=== PATIENT | male | born 1975 | race Caucasian/White ===

== ENCOUNTER 2020-11-08 13:15 | Outpatient (REF) | payer OTHER, SELFPAY ==
--- NOTE | ~2020-11-08 | XR_ITS ---
EXAMINATION: XR THORACOLUMBAR SPINE CLINICAL INFORMATION: Pain in thoracic spine. COMPARISON: None TECHNIQUE: AP, lateral and swimmer's views of the thoracic spine were obtained. FINDINGS: The vertebral alignment is normal. No intrinsic bony abnormality. The disc heights and neural foramina are well maintained. The endplates and posterior elements are normal. No fracture or subluxation. The surrounding prevertebral soft tissues are unremarkable. XR/XR thoracic spine 2V IMPRESSION: Unremarkable examination.
[2020-11-08 14:19] LABS: MANUAL DIFF FLAG NO
[2020-11-08 14:26] LABS: Basophils Absolute Auto 0.1 X10*3/uL (0.0-0.2); Basophils Percent Auto 0.8 % (0-2); Eosinophils Absolute Auto 0.2 X10*3/uL (0.0-0.4); Eosinophils Percent Auto 1.8 % (0-4); Hematocrit 43.4 % (42-52); Hemoglobin 14.3 g/dl (14.0-18.0); Imm Gran Abs Auto 0.01 X10*3/uL (0.00-0.03); Imm Gran Pct Auto 0.1 % (0.0-0.4); Mean Corpuscular HGB Conc 32.9 g/dl (31.0-36.0); Mean Corpuscular Hemoglobin 30.6 pg (27.0-33.0); Mean Corpuscular Volume 92.7 fL (80-98); Mean Platelet Volume 11.3 fL (9.4-12.4); Monocytes Absolute Auto 0.3 X10*3/uL (0.1-1.2); Monocytes Percent Auto 3.9 % (2-11); Neutrophils Absolute Auto 6.8 X10*3/uL (2.0-8.3); Neutrophils Percent Auto 81.4 % (45-73); Platelet Count 310 X10*3/uL (160-400); Red Blood Count 4.68 X10*6/uL (4.60-5.80); Red Cell Distribution Width 12.2 % (11.0-16.0); White Blood Count 8.4 X10*3/uL (4.8-10.8)
[2020-11-08 14:47] LABS: Alanine Aminotransferase 33 U/L (0-40); Albumin Level 4.8 g/dL (3.5-5.0); Alkaline Phosphatase 66 U/L (39-117); Anion Gap 17 (12-20); Aspartate Amino Transferase 24 U/L (5-37); Bilirubin Total 0.6 mg/dL (0.0-1.0); Blood Urea Nitrogen 19 mg/dL (9-16); Calcium 9.9 mg/dL (8.4-10.2); Carbon Dioxide 27 mmol/L (22-29); Chloride 103 mmol/L (96-108); Cholesterol 195 mg/dL; Estimated Glomerular Filt Rate > 60; Glucose Fasting 93 mg/dL (60-99); HDL Cholesterol 68 mg/dL; LDL Cholesterol Calculated 105 mg/dl; Sodium 143 mmol/L (135-145); Total Protein 7.7 g/dL (6.5-8.0); Triglycerides 112 mg/dL
[2020-11-08 15:10] LABS: TSH reflex Free T4 1.29 uIU/mL (0.32-4.0); Vitamin D 25-OH Total 62.7 ng/mL (>30)
[2020-11-08 15:14] LABS: Erythrocyte Sedimentation Rate 3 MM/HR (0-15)
[2020-11-08 15:33] LABS: Folate > 20.0 ng/mL (> or = 4.0); Vitamin B12 800 pg/mL (200-900)
== END 2020-11-08 13:16 | disposition home or self-care (01) ==
LOC: HO.LAB 13:15
PROVIDERS: PCP Internal Medicine; Visit Provider Internal Medicine
DX: Z00.00 Encounter for general adult medical examination without abnormal findings (principal); G89.29 Other chronic pain; M25.522 Pain in left elbow; M54.6 Pain in thoracic spine; E55.9 Vitamin D deficiency, unspecified
CPT/HCPCS: 36415; 72070; 80053; 80061; 82306; 82607; 82746; 84443; 85025; 85652

== ENCOUNTER 2021-03-03 15:43 | Outpatient (AMB) | payer OTHER, SELFPAY ==
[2021-03-03 15:50] VITALS: BP 128/80; PULSE 84; TEMP 36; O2SAT 98; BMI 20.7
--- NOTE | 2021-03-03 15:50 | MHC.PC.OV ---
Vital Signs 03/03/21 15:50 Height 5 ft 8 in Weight 136 lb BMI 20.7 BP 128/80 Pulse 84 Pulse Source Pulse Oximeter Temp 96.8 F Pulse Oximetry (%) 98 Oxygen Delivery Method Room Air HPI 3 month follow up HPI Details Patient comes in today for his follow up visit States that he continues to experience chronic pain in his left elbow but his current Rx help keep his pain manageable - needs both of his Rx (Gabapentin and Tramadol)refilled States that he feels okay otherwise He denies any increased headaches or dizziness Denies any chest pains, no SOB No nausea/vomiting, no abdominal pain No change in bowel habits noted Would also like to know how his labs done a few months ago came out [facility] Medical History Anxiety Chronic pain of left elbow Vitamin D deficiency Surgical History History of elbow surgery (~08/27/10) Hx of elbow surgery (~09/29/12) Family History Mother Hypertension Cancer Father Medical history unknown Social History Housing: House Alcohol intake: never Patient Tobacco Use Status: Never used Tobacco e-Cigarette/Vaping Use: Never Used Second Hand Smoke Exposure: Yes service: No Current occupational status: unemployed Cognitive needs: No Hearing needs: No Vision needs: No Questionnaire PHQ-9 (HOL/HEY) Over the last 2 weeks, how often have you been bothered by any of the following problems? 1. Little interest or pleasure in doing things: not at all 2. Feeling down, depressed, or hopeless: not at all 3. Trouble falling or staying asleep, or sleeping too much: not at all 4. Feeling tired or having little energy: not at all 5. Poor appetite or overeating: not at all 6. Feeling bad about yourself - or that you are a failure or have let yourself or your family down: not at all 7. Trouble concentrating on things, such as reading the newspaper or watching television: not at all 8. Moving or speaking so slowly that other people could have noticed. Or the opposite - being so fidgety or restless that you have been moving around a lot more than usual: not at all 9. Thoughts that you would be better off or of hurting yourself in some way: not at all Total score: 0 Depression Screening Interpretation: Negative 46327 - PHQ-9 Billing: Yes Source: Developed by Drs. Alex Watson, Bre Terry, J Carlos Reid and colleagues, with an educational sayra from [employer]. Thrive Questionnaire Date Thrive assessed: 03/03/21 I am a: Patient What is your living situation today?: I have a steady place to live Within the past 12 months, did the food you bought not last and you didn't have the money to get more?: Never true Within the past 12 months, did you worry whether your food would run out before you got money to buy more?: Never true Do you have trouble paying for medicines?: No Do you have trouble getting transportation to medical appointments?: No Do you have trouble paying your heating and electricity bill?: No Do you have trouble taking care of your child, family member or friend?: No Do you have trouble with day-to-day activities such as bathing, preparing meals, shopping, managing finances, etc.?: No Are you currently unemployed and looking for a job?: No Are you interested in more education?: No Currently or been in a relationship where the following occur: no concerns reported AUDIT C Alcohol Use Questionnaire (AUDIT-C) 1. How often do you have a drink containing alcohol?: Never 3. How often do you have six or more drinks on one occasion?: Never Total Score: 0 Score Reviewed/Action Taken: Yes SAUMYA-7 AMB Questionnaire SAUMYA-7 Date SAUMYA - 7 assessed: 03/03/21 Feeling nervous, anxious, or on edge: 0 = Not at all Not being able to stop or control worryin = Not at all Worrying too much about different things: 0 = Not at all Trouble relaxin = Not at all Being so restless that it is hard to sit still: 0 = Not at all Becoming easily annoyed or irritable: 0 = Not at all Feeling afraid as if something awful might happen: 0 = Not at all Total SAUMYA-7 score (0-4 normal; 5-9 mild; 10-14 moderate; 15-21 severe): 0 Source: Developed by Drs. Alex Watson, Bre Terry, J Carlos Reid and colleagues, with an educational sayra from [employer]. Review of Systems Const Denies chills, Reports fatigue, Denies fever(s) and Denies headache(s) ENT Denies dysphagia, Denies dizziness, Denies otalgia, Denies headache(s), Denies odynophagia and Denies sore throat Card Denies chest pain, Denies palpitations and Denies dyspnea Resp Denies cough, Denies dyspnea and Denies wheezing GI Denies abdominal pain, Denies constipation, Denies dysphagia, Denies heartburn, Denies diarrhea, Denies nausea, Denies odynophagia and Denies vomiting Denies dysuria, Denies nocturia and Denies urinary frequency Musc Reports back pain (see HPI) and Reports arthralgias (over the left elbow - chronic) Skin/Breast Denies rash Neuro Denies dizziness and Denies headache(s) Endo Reports fatigue and Denies palpitations Aller/Immun Denies wheezing Physical exam (Primary Care) Vital Signs: Last Vital Signs Temp 96.8 F 03/03/21 15:50 Pulse 84 03/03/21 15:50 BP 128/80 03/03/21 15:50 Pulse Ox 98 03/03/21 15:50 Oxygen Delivery Method Room Air 03/03/21 15:50 BMI result Body Mass Index 20.7 Tobacco/Smoking Status: Tobacco use Status Tobacco use date assessed 03/03/21 03/03/21 15:55 Patient Tobacco Use Status Never used Tobacco 03/03/21 15:55 PHQ-9: Total score: 0 Depression Screening Interpretation: Negative Const General: no acute distress and alert HENMT Ears: TM's normal bilaterally and EAC's normal Throat: Yes posterior oropharynx normal and Yes tonsils normal (no TP congestion noted) Neck Neck: Yes no lymphadenopathy and Yes supple Resp Auscultation: clear to auscultation bilaterally, no rales and no wheezes Cardio Rate: regular rate Rhythm: regular rhythm Heart sounds: no murmurs GI Palpation (GI): Soft to palpation and nontender Auscultation: normal bowel sounds Back/Spine/Pelvis Thoracic/Lumbar Spine: lumbar spinal tenderness (mild) Extrem General: Yes no clubbing, cyanosis or edema Left upper extremity: elbow/forearm Details: tenderness (chronic) Location: of the olecranon and of the lateral epicondyle; no swelling Results Reviewed Results Reviewed: Laboratory Tests 11/08/20 11/08/20 13:45 13:45 WBC 8.4 Hgb 14.3 Hct 43.4 Plt Count 310 Sodium 143 Potassium 4.0 Creatinine 0.85 Estimated GFR > 60 Fasting Glucose 93 Calcium 9.9 AST 24 ALT 33 Triglycerides 112 Cholesterol 195 LDL Cholesterol, Calc 105 HDL Cholesterol 68 25-OH Vitamin D Total 62.7 TSH 1.29 Assessment and Plan Assessment & Plan (1) Chronic pain of left elbow: Comment: Failed surgery X [address] Welch Code(s): M25.522 - Pain in left elbow; G89.29 - Other chronic pain Plan: States that his chronic pain remains well-controlled on his current Rx Continue Gabapentin 400 mg TID and Tramadol 50 mg TID PRN - Rx refilled (2) Vitamin D deficiency: Code(s): E55.9 - Vitamin D deficiency, unspecified Plan: Corrected - vitamin D level remains normal on his recent labs Continue Vitamin D3 2000 units QD (3) Back pain: Code(s): M54.9 - Dorsalgia, unspecified Qualifiers: Back pain laterality: midline Back pain location: thoracic back pain Chronicity: acute Qualified Code(s): M54.6 - Pain in thoracic spine Plan: Reinforced activity and weight-lifting restrictions Continue Gabapentin 400 mg TID and Tramadol 50 mg TID PRN (4) Anxiety: Code(s): F41.9 - Anxiety disorder, unspecified Plan: States that his anxiety has been adequately controlled and he's had no flare ups of his anxiety lately Follow up with psychiatry / counseling as scheduled Plan Results of his labs done a few months ago reviewed and discussed with patient - advised that his cholesterol level, blood sugar and all of his labs are within normal limits Follow up in 4 months Medications: Refilled tramadol 50 mg PO TID PRN 90 tabs 1RF pain 30 days M25.522 - Pain in left elbow, G89.29 - Other chronic pain gabapentin 400 mg PO TID 90 caps 3RF 30 days M25.522 - Pain in left elbow, G89.29 - Other chronic pain Coding Level of Care Code Est Pt Level 4 (32230) Diagnoses Chronic pain of left elbow M25.522; G89.29 Vitamin D deficiency E55.9 Acute midline thoracic back pain M54.6 Back pain laterality: midline Back pain location: thoracic back pain Chronicity: acute Anxiety F41.9 Additional Codes PHQ-9 - 35245 - PHQ-9 Billing: Yes ([id number])
== END 2021-03-03 16:27 ==
LOC: HO.HMGH 15:43
PROVIDERS: PCP Internal Medicine; Visit Provider Internal Medicine
DX: M25.522 Pain in left elbow (principal); G89.29 Other chronic pain; E55.9 Vitamin D deficiency, unspecified; F41.9 Anxiety disorder, unspecified; M54.6 Pain in thoracic spine
CPT/HCPCS: 99214

== ENCOUNTER 2022-04-21 11:55 | Outpatient (REF) | payer OTHER, SELFPAY ==
[2022-04-21 13:11] LABS: Alanine Aminotransferase 15 U/L (0-40); Albumin Level 4.7 g/dL (3.5-5.0); Alkaline Phosphatase 64 U/L (39-117); Anion Gap 16 (12-20); Aspartate Amino Transferase 16 U/L (5-37); Bilirubin Total 0.8 mg/dL (0.0-1.0); Blood Urea Nitrogen 20 mg/dL (9-16); Calcium 9.6 mg/dL (8.4-10.2); Carbon Dioxide 25 mmol/L (22-29); Chloride 104 mmol/L (96-108); Cholesterol 138 mg/dL; Estimated Glomerular Filt Rate > 60; Glucose Fasting 100 mg/dL (60-99); HDL Cholesterol 47 mg/dL; LDL Cholesterol Calculated 79 mg/dl; Potassium 4.3 mmol/L (3.3-5.1); Sodium 141 mmol/L (135-145); Total Protein 7.2 g/dL (6.5-8.0); Triglycerides 64 mg/dL
[2022-04-21 13:26] LABS: TSH reflex Free T4 1.91 uIU/mL (0.32-4.0); Vitamin D 25-OH Total 60.9 ng/mL (>30)
[2022-04-21 13:47] LABS: Folate > 20.0 ng/mL (> or = 4.0); Vitamin B12 322 pg/mL (200-900)
== END 2022-04-21 11:56 | disposition home or self-care (01) ==
LOC: HO.LAB 11:55
PROVIDERS: PCP Internal Medicine; Visit Provider Nurse Practitioner Family
DX: Z13.29 Encounter for screening for other suspected endocrine disorder (principal); Z13.220 Encounter for screening for lipoid disorders; G89.29 Other chronic pain; M25.522 Pain in left elbow; E55.9 Vitamin D deficiency, unspecified
CPT/HCPCS: 36415; 80053; 80061; 82306; 82607; 82746; 84443

== ENCOUNTER 2022-08-06 14:52 | Emergency (ER) | payer OTHER, SELFPAY ==
--- NOTE | 2022-08-06 14:55 | ED_ITS ---
HPI - Allergic Reaction General Chief complaint: Allergic Reaction <LOC Medrano - Last Filed: 08/06/22 14:59> Stated complaint: allergic reaction <LOC Medrano - Last Filed: 08/06/22 14:59> Time Seen by Provider: 08/06/22 15:59 <LOC Medrano - Last Filed: 08/06/22 14:59> Source: patient <Belle Chen MD - Last Filed: 08/06/22 17:09> Mode of arrival: ambulatory <Belle Chen MD - Last Filed: 08/06/22 17:09> Limitations: no limitations <Belle Chen MD - Last Filed: 08/06/22 17:09> History of Present Illness HPI narrative: Patient comes to the emergency room complaining of an allergic reaction. Patient is known to be allergic to penicillin. Patient states that he has not taken any penicillin but his mother is taking penicillin. Patient states that approximately 3 hours prior to arrival, patient started feeling itchy around his face neck and torso, patient took a bit of Benadryl. Patient waited for a few minutes, then he went to the bathroom in a look at his face in the mirror, it was very swollen. Patient panicked and took in total 7 tablets of 25 mg of Benadryl and came to the hospital. On arrival to the hospital. Patient was immediately administered 0.3 mg of IM epinephrine, 20 mg famotidine and methyl prednisolone 125 mg. <Belle Chen MD - Last Filed: 08/06/22 17:09> Related Data Home medications: Previous Rx's Medication Instructions Recorded cholecalciferol (vitamin D3) 50 50 mcg PO DAILY #30 caps 04/24/22 mcg (2,000 unit) capsule gabapentin 400 mg capsule 400 mg PO TID 30 days #90 caps 07/21/22 tramadol 50 mg tablet 50 mg PO TID PRN pain 30 days #90 07/21/22 tabs epinephrine 0.3 mg/0.3 mL 0.3 mg (0.3 mL) IM Q4H PRN 08/06/22 injection, auto-injector (EpiPen) anaphylaxis #2 ea <LOC Medrano - Last Filed: 08/06/22 14:59> Allergies/adverse reactions: Allergies Allergy/AdvReac Type Severity Reaction Status Date / Time NSAIDS (Non-Steroidal Allergy Intermediate BLOOD IN Verified 08/06/22 14:57 Anti-Inflamma STOOL [NSAIDS (NON-STEROIDAL ANTI-INFLAMMA] diclofenac [DICLOFENAC] Allergy Unknown Blood in Verified 08/06/22 14:57 stool naproxen [Aleve] Allergy Unknown Blood in Verified 08/06/22 14:57 stool penicillin V Allergy Unknown rash Verified 08/06/22 14:57 Penicillins [PENICILLINS] Allergy Unknown Rash Verified 08/06/22 14:57 <LOC Medrano - Last Filed: 08/06/22 14:59> Review of Systems Review of Systems: Constitutional : No Weight loss, No Fever, No Chills, No N ight Sweats, No Fatigue, No Malaise, complaining of facial swelling ENT/Mouth : No Hearing loss, No Ear Pain, No Nasal Congestion, No Sinus Pain, No Hoarseness, No sore throat, No Rhinorrhea, initially complaining of difficulty swallowing Eyes: No Eye Pain, No Swelling, No Redness, No Foreign Body, No Discharge, No Vision Changes Cardiovascular : No Chest Pain, No SOB, No Dyspnea on Exertion, No Orthopnea, No Edema, No Palpitations Respiratory : No Cough, No Sputum, No Wheezing, No Smoke Exposure, complaining of Dyspnea Gastrointestinal : No Nausea, No Vomiting, No Diarrhea, No Constipation, No abdominal Pain, No Hematochezia, No Melena Genitourinary : no irregular bleeding, No Dysuria, No Urinary Frequency, No Hematuria, No Urinary Incontinence, No Urgency, No Flank Pain, No Urinary Flow Changes, No Hesitancy Musculoskeletal : No joint pain, No Myalgias, No Joint Swelling Skin : Complaining of diffuse hives, itchiness Neuro : No Weakness, No Numbness, No Paresthesias, No Loss of Consciousness, No Dizziness, No Headache Psych : No Anxiety/Panic, No Depression, No SI/HI/AH/VH, No Social Issues, Heme/Lymph: No Bruising, No Bleeding,No Lymphadenopathy Endocrine : No Polyuria, No Polydipsia, No Temperature Intolerance <Belle Chen MD - Last Filed: 08/06/22 17:09> [facility] Past Medical History Medical History: Medical History Anxiety Chronic pain of left elbow Vitamin D deficiency <LOC Medrano - Last Filed: 08/06/22 14:59> Surgical History: Surgical History History of elbow surgery (~08/27/10) Hx of elbow surgery (~09/29/12) <LOC Medrano - Last Filed: 08/06/22 14:59> Family History Family History: Family History Mother Hypertension Cancer Father Medical history unknown <LOC Medrano - Last Filed: 08/06/22 14:59> Social History Social History: Social History Housing: House Alcohol intake: never Patient Tobacco Use Status: Never used Tobacco e-Cigarette/Vaping Use: Never Used Second Hand Smoke Exposure: Yes Advance Directives: No Advance Directives Information Provided: Yes service: No Current occupational status: unemployed Cognitive needs: No Hearing needs: No Vision needs: No <LOC Medrano - Last Filed: 08/06/22 14:59> Physical Exam ED Vital Signs: Vital Signs - 24 hr 08/06/22 14:58 08/06/22 15:04 08/06/22 15:15 Temperature 98.1 F 97 F Pulse Rate 109 H 105 H 108 H Respiratory Rate 18 20 Blood Pressure 132/78 102/63 102/63 Pulse Oximetry 98 93 Oxygen Delivery Method Room Air Room Air 08/06/22 15:25 08/06/22 16:23 Temperature Pulse Rate 84 96 Respiratory Rate Blood Pressure Pulse Oximetry 96 97 Oxygen Delivery Method Room Air Room Air BMI result Body Mass Index 22.8 <LOC Medrano - Last Filed: 08/06/22 14:59> Vital Signs - 24 hr 08/06/22 14:58 08/06/22 15:04 08/06/22 15:15 Temperature 98.1 F 97 F Pulse Rate 109 H 105 H 108 H Respiratory Rate 18 20 Blood Pressure 132/78 102/63 102/63 Pulse Oximetry 98 93 Oxygen Delivery Method Room Air Room Air 08/06/22 15:25 08/06/22 16:23 Temperature Pulse Rate 84 96 Respiratory Rate Blood Pressure Pulse Oximetry 96 97 Oxygen Delivery Method Room Air Room Air BMI result Body Mass Index 22.8 <Belle Chen MD - Last Filed: 08/06/22 17:09> Const Other: Appearance: Alert. Oriented X3. No acute distress. Eyes: Pupils equal, round and reactive to light. ENT: Pharynx normal. Neck: Normal inspection. Neck supple. No lymph nodes noted. No crepitus CVS: Normal heart rate and rhythm. Pulses normal. Normal S1 and S2 Respiratory: No respiratory distress. Breath sounds normal. No Wheezing. No rales Abdomen: Soft and nontender. No rigidity. No distention. Skin: Skin warm and dry. Normal skin color. Normal skin turgor. Extremities: No lower extremity edema. No Lacerations. No Rash Neuro: Oriented X 3. No motor deficit. No sensory deficit. Moving all extremit ies. No slurred speech. CN 2 through 12 grossly intact Psych: calm, cooperative, normal affect <Belle Chen MD - Last Filed: 08/06/22 17:09> Course Course Course Narrative: RME - 47 yo male with history of penicillin allergy, red dye allergy presenting to the ER for evaluation of a diffuse body rash, facial swelling, throat tightening and voice changes that started 1:30pm. He took 7 tablets of 25 mg benadryl in a panic. Raspy voice in triage, anxious, diffuse urticarial rash. No wheezing. 18G IV established in triage. Epi, solumedrol and pepcid ordered for anaphylaxis. To go to treatment room now. <LOC Medrano - Last Filed: 08/06/22 14:59> Medications Administered Discontinued Medications Generic Name Dose Route Start Last Admin Trade Name Freq PRN Reason Stop Dose Admin Epinephrine 0.3 mg 08/06/22 14:54 08/06/22 15:04 Epinephrine 1 Mg/Ml Vial IM 08/06/22 14:55 0.3 mg STAT STA Administration Famotidine 20 mg 08/06/22 14:54 08/06/22 15:07 Famotidine/Pf 20 Mg/2 Ml Vial IVPUSH 08/06/22 14:55 20 mg ONCE ONE Administration Methylprednisolone Sodium Succinate 125 mg 08/06/22 14:54 08/06/22 15:04 Methylprednisolone Sod Succ 125 Mg/2 Ml Vial IVPUSH 08/06/22 14:55 125 mg ONCE ONE Administration <LOC Medrano - Last Filed: 08/06/22 14:59> Medications Administered Discontinued Medications Generic Name Dose Route Start Last Admin Trade Name Shayan PRN Reason Stop Dose Admin Epinephrine 0.3 mg 08/06/22 14:54 08/06/22 15:04 Epinephrine 1 Mg/Ml Vial IM 08/06/22 14:55 0.3 mg STAT STA Administration Famotidine 20 mg 08/06/22 14:54 08/06/22 15:07 Famotidine/Pf 20 Mg/2 Ml Vial IVPUSH 08/06/22 14:55 20 mg ONCE ONE Administration Methylprednisolone Sodium Succinate 125 mg 08/06/22 14:54 08/06/22 15:04 Methylprednisolone Sod Succ 125 Mg/2 Ml Vial IVPUSH 08/06/22 14:55 125 mg ONCE ONE Administration <Belle Chen MD - Last Filed: 08/06/22 17:09> Medical Decision Making Medical Decision Making MDM Narrative: -after patient received the IV treatment mentioned above, patient speaking full sentences, well appearing -patient will be observed for couple of hours, patient received IM epinephrine. -after 2 hours of observation, patient remains asymptomatic, no difficulty breathing, no wheezing, normal speech, no edema -discussed with the patient how to use EpiPen and when to use it. <Belle Chen MD - Last Filed: 08/06/22 17:09> Critical Care Time Critical Care Time Critical Care Time: Yes <Belle Chen MD - Last Filed: 08/06/22 17:09> Total Critical Care Time: 60 <Belle Chen MD - Last Filed: 08/06/22 17:09> Attestation: I have personally provided critical care time. Time includes review of lab data, radiology results, discussion with consultants, and monitoring for p otential decompensation. Intervention performed as documented. <Belle Chen MD - Last Filed: 08/06/22 17:09> Discharge Plan Discharge Clinical Impression: Anaphylaxis <LOC Medrano - Last Filed: 08/06/22 14:59> Patient Disposition: Home, Self-Care <LOC Medrano - Last Filed: 08/06/22 14:59> Instructions: Anaphylaxis (ED) <LOC Medrano - Last Filed: 08/06/22 14:59> Additional Instructions: Please follow-up with your primary care physician tomorrow. If you have any worsening or new symptoms, please return to the emergency room or call 911 <LOC Medrano - Last Filed: 08/06/22 14:59> Prescriptions: New epinephrine [EpiPen] 0.3 mg/0.3 mL auto-injector 0.3 mg IM Q4H PRN (Reason: anaphylaxis) Qty: 2 0RF No Action cholecalciferol (vitamin D3) 50 mcg (2,000 unit) capsule 50 mcg PO DAILY Qty: 30 5RF gabapentin 400 mg capsule 400 mg PO TID 30 Days Qty: 90 3RF tramadol 50 mg tablet 50 mg PO TID PRN (Reason: pain) 30 Days Qty: 90 1RF <OLC Medrano - Last Filed: 08/06/22 14:59>
[2022-08-06 14:58] VITALS: BP 132/78; PULSE 109; RESP 18; TEMP 36.7; O2SAT 98; BMI 22.8
[2022-08-06 15:04] VITALS: BP 102/63; PULSE 105
[2022-08-06] MEDS: methylPREDNISolone Sod Succ 125 MG/2 ML VIAL IVPUSH (15:04)
[2022-08-06] MEDS: EPINEPHrine 1 MG/ML VIAL 0.3 MG IM (15:04)
[2022-08-06] MEDS: Famotidine/PF 20 MG/2 ML VIAL IVPUSH (15:07)
[2022-08-06 15:15] VITALS: BP 102/63; PULSE 108; RESP 20; TEMP 36.1; O2SAT 93
[2022-08-06 15:25] VITALS: PULSE 84; O2SAT 96
[2022-08-06 16:23] VITALS: PULSE 96; O2SAT 97
== END 2022-08-06 17:24 | disposition home or self-care (01) ==
PROVIDERS: Emergency Provider Emergency Medicine; PCP Internal Medicine
DX: T88.6XXA Anaphylactic reaction due to adverse effect of correct drug or medicament properly administered, initial encounter (principal); T50.995A Adverse effect of other drugs, medicaments and biological substances, initial encounter; Y92.009 Unspecified place in unspecified non-institutional (private) residence as the place of occurrence of the external cause
CPT/HCPCS: 96372; 96374; 96375; 99283; 99284; J0171; J2930

== ENCOUNTER 2023-06-14 17:25 | Outpatient (AMB) | payer OTHER, SELFPAY ==
[2023-06-14 17:28] VITALS: BP 122/78; PULSE 90; BMI 20.7
--- NOTE | 2023-06-14 17:28 | A.OFFPC_ITS ---
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 Accompanied by: Self / Same As Patient Allergies blackberry Allergy (Severe, Verified 06/14/23 17:47) Anaphylaxis NSAIDS (Non-Steroidal Anti-Inflamma [NSAIDS (NON-STEROIDAL ANTI-INFLAMMA] Allergy (Intermediate, Verified 06/14/23 17:47) BLOOD IN STOOL diclofenac [DICLOFENAC] Allergy (Unknown, Verified 06/14/23 17:47) Blood in stool naproxen [Aleve] Allergy (Unknown, Verified 06/14/23 17:47) Blood in stool penicillin V Allergy (Unknown, Verified 06/14/23 17:47) rash Penicillins [PENICILLINS] Allergy (Unknown, Verified 06/14/23 17:47) Rash rassberry Allergy (Severe, Uncoded 06/14/23 17:47) Anaphylaxis Medication List - Last Reconciled 06/14/23 by Aguilar Lopez MD cholecalciferol (vitamin D3) 50 mcg PO DAILY 90 days epinephrine (EpiPen) 0.3 mg (0.3 mL) IM Q4H PRN gabapentin 400 mg PO TID 30 days tramadol 50 mg PO TID PRN 30 days Tobacco use date assessed: 10/26/22 Dental Screening Dental Screen Date: 06/14/23 Did you have a dental visit in the last 12 months?: No Did you have a dental problem in the last 6 months where you did not have access to dental care?: No Was dental information given to patient?: Patient declined HPI PE+ KARENA/JOSÉ MANUEL Montalvo MD INTERPRETATION HPI Details Patient comes in today for his annual physical examination States that he feels okay Still has chronic pain over his left elbow but states that they are mostly manageable on his current meds Needs his Tramadol and Gabapentin Rx refilled today States that he got his left hand caught on a dresser a couple of weeks ago and a couple of his fingers swelled up for a few days but the swelling has since subsided and the pain has also almost eased up States that he still has some stiffness of the fingers but he does not think that he broke any bones as he is able to flex his hand and make a fist without any problems He denies any headaches or dizziness Denies any chest pains, no SOB No nausea/vomiting, no abdominal pain No change in bowel habits noted He denies any acute urinary symptoms Was not able to get his follow up labs done recently States that he has never had a colonoscopy done in the past and that he has no increased risk (personal or family) of colon cancer PFSH Medical History Anxiety Vitamin D deficiency Chronic pain of left elbow Surgical History History of elbow surgery (~08/27/10) Hx of elbow surgery (~09/29/12) Family History Mother Hypertension Cancer Father Medical history unknown Social History Housing: House Alcohol intake: never Patient Tobacco Use Status: Never used Tobacco e-Cigarette/Vaping Use: Never Used Second Hand Smoke Exposure: Yes service: No Current occupational status: unemployed Cognitive needs: No Hearing needs: No Vision needs: No Questionnaire PHQ-9 Over the last 2 weeks, how often have you been bothered by any of the following problems? 1. Little interest or pleasure in doing things: not at all 2. Feeling down, depressed, or hopeless: not at all 3. Trouble falling or staying asleep, or sleeping too much: not at all 4. Feeling tired or having little energy: not at all 5. Poor appetite or overeating: not at all 6. Feeling bad about yourself - or that you are a failure or have let yourself or your family down: not at all 7. Trouble concentrating on things, such as reading the newspaper or watching television: not at all 8. Moving or speaking so slowly that other people could have noticed. Or the opposite - being so fidgety or restless that you have been moving around a lot more than usual: not at all 9. Thoughts that you would be better off or of hurting yourself in some way: not at all Total score: 0 Depression Screening Interpretation: Negative Depression Screening Done: Yes 35152 - PHQ-9 Billing: Yes Source: Developed by Drs. Alex Watson, Bre Terry, J Carlos Reid and colleagues, with an educational sayra from [employer]. Thrive Questionnaire Date Thrive assessed: 06/14/23 I am a: Patient What is your living situation today?: I have a steady place to live Within the past 12 months, did the food you bought not last and you didn't have the money to get more?: Never true Within the past 12 months, did you worry whether your food would run out before you got money to buy more?: Never true Do you have trouble paying for medicines?: No Do you have trouble getting transportation to medical appointments?: No Do you have trouble paying your heating and electricity bill?: No Do you have trouble taking care of your child, family member or friend?: No Do you have trouble with day-to-day activities such as bathing, preparing meals, shopping, managing finances, etc.?: No Are you currently unemployed and looking for a job?: No Are you interested in more education?: No Currently or been in a relationship where the following occur: no concerns reported AUDIT C Alcohol Use Questionnaire (AUDIT-C) 1. How often do you have a drink containing alcohol?: Never Total Score: 0 Score Reviewed/Action Taken: Yes SAUMYA-7 AMB Questionnaire SAUMYA-7 Date SAUMYA - 7 assessed: 03/03/21 Source: Developed by Drs. Alex Watson, Bre Terry, J Carlos Reid and colleagues, with an educational sayra from [employer]. Review of Systems Const Denies chills, Denies fatigue, Denies fever(s), Denies headache(s), Denies malaise and Denies weakness Eyes Denies blurry vision, Denies change in vision, Denies irritation and Denies itchy eyes ENT Denies dysphagia, Denies dizziness, Denies otalgia, Denies headache(s), Denies nasal congestion, Denies neck pain, Denies odynophagia and Denies sore throat Card Denies chest pain, Denies rapid heart rate, Denies irregular heart rhythm, Denies palpitations and Denies dyspnea Resp Denies chest congestion, Denies cough, Denies dyspnea and Denies wheezing GI Denies abdominal pain, Denies bloating, Denies constipation, Denies dysphagia, Denies heartburn, Denies diarrhea, Denies nausea, Denies odynophagia and Denies vomiting Denies hematuria, Denies difficulty urinating, Denies dysuria, Denies urinary frequency and Denies urinary urgency Musc Reports back pain (over the lower back), Reports arthralgias (over the left elbow - chronic) and Denies neck pain Skin/Breast Denies change in pigmentation, Denies lesions, Denies rash and Denies unusual bruising Neuro Denies dizziness, Denies headache(s), Denies paresthesias and Denies weakness Endo Denies fatigue and Denies palpitations Aller/Immun Denies itchy eyes, Reports seasonal rhinorrhea and Denies wheezing Physical exam (Primary Care) Vital Signs: Last Vital Signs Pulse 90 06/14/23 17:28 BP 122/78 06/14/23 17:28 BMI result Body Mass Index 20.7 Tobacco/Smoking Status: Tobacco use Status Tobacco use date assessed 10/26/22 06/14/23 17:31 Patient Tobacco Use Status Never used Tobacco 06/14/23 17:31 e-Cigarette/Vaping Use Never Used 06/14/23 17:31 Depression Screening Interpretation: Negative Thrive Assessment: Date of Thrive Assessment Date Thrive assessed 10/26/22 12 17:31 Currently or been in a relationship where the following occur: no concerns reported Const General: no acute distress, alert and awake Orientation/consciousness: patient oriented x3 HENMT Head: Yes normocephalic and Yes atraumatic Ears: external ears normal, TM's normal bilaterally and EAC's normal General nose exam: No nasal discharge present Face and sinus: Yes normal facial exam and Yes sinuses nontender Teeth and gingiva: dentition normal Throat: Yes posterior oropharynx normal and Yes tonsils normal (no TP congestion) Eyes Eyelids: Yes eyelids normal Conjunctivae: conjunctivae normal Pupils: Equal, round and reactive pupils present EOM: EOMs intact bilaterally Neck Neck: Yes no lymphadenopathy and Yes supple Thyroid: Thyroid normal Resp Auscultation: clear to auscultation bilaterally, no rales and no wheezes Cardio Rate: regular rate Rhythm: regular rhythm Heart sounds: no murmurs GI Palpation (GI): Soft to palpation, nontender and No hepatosplenomegaly present Auscultation: normal bowel sounds General: Yes no CVA tenderness Back/Spine/Pelvis Back: no CVA tenderness Thoracic/Lumbar Spine: lumbar spinal tenderness (mild) Skin Lesions: no lesions Rashes: no rashes Neuro General: patient oriented x3, moves all extremities, no focal motor deficits and CN's II-XI intact bilaterally Cranial nerves: Yes Equal, round and reactive pupils present Cognition (Neuro): normal cognition Gait exam (Neuro): Normal gait present Extrem General: Yes no clubbing, cyanosis or edema Left upper extremity: elbow/forearm Details: tenderness (chronic) Location: of the olecranon and of the lateral epicondyle; no swelling Assessment and Plan Assessment & Plan (1) Annual physical exam: Code(s): Z00.00 - Encounter for general adult medical examination without abnormal findings Plan: Check labs - these have been ordered previously and he can go and get these done at any time He has never had a screening colonoscopy done and does not wish to start yet; also declines offer for Cologuard testing States that he is aware of the risks he is taking by not getting screened for colon cancer at this time - has been advised that current recommendation now is to start screening for colon cancer at age 45 Patient states that he will consider this again at his next annual physical exam next year (2) Chronic pain of left elbow: Comment: Failed surgery X [address] Welch Code(s): M25.522 - Pain in left elbow; G89.29 - Other chronic pain Plan: Continue Tramadol 50 mg TID PRN and Gabapentin 400 mg TID - Rx refilled (3) Vitamin D deficiency: Code(s): E55.9 - Vitamin D deficiency, unspecified Plan: Continue Vitamin D3 2000 units QD Will recheck his Vitamin D level DEIDRE for follow up (4) Back pain: Code(s): M54.9 - Dorsalgia, unspecified Qualifiers: Back pain laterality: midline Back pain location: thoracic back pain Chronicity: acute Qualified Code(s): M54.6 - Pain in thoracic spine Plan: On and off; thoracic spine x-rays done in 11/2020 came out normal Will consider referring to physical therapy if his back pains continue to flare up (5) Anxiety: Code(s): F41.9 - Anxiety disorder, unspecified Plan: Continue Lorazepam 0.5 mg 2 to 3 times a day as needed Plan Follow up in 4 months Medications: Refilled gabapentin 400 mg PO TID 30 days 90 caps 3RF G89.29 - Other chronic pain, M25.522 - Pain in left elbow tramadol 50 mg PO TID 30 days PRN 90 tabs 1RF pain G89.29 - Other chronic pain, M25.522 - Pain in left elbow Review Patient declined Colonoscopy: 06/14/23 Patient declined Colon Cancer Screen Lab: 06/14/23 Coding Level of Care Code Est Pt Prev Care 40-64y(15167) Diagnoses Annual physical exam Z00.00 Chronic pain of left elbow M25.522; G89.29 Vitamin D deficiency E55.9 Acute midline thoracic back pain M54.6 Back pain laterality: midline Back pain location: thoracic back pain Chronicity: acute Anxiety F41.9
== END 2023-06-14 17:55 | disposition home or self-care (01) ==
PROVIDERS: PCP Internal Medicine; Visit Provider Internal Medicine
DX: Z00.00 Encounter for general adult medical examination without abnormal findings (principal); M25.522 Pain in left elbow; G89.29 Other chronic pain; E55.9 Vitamin D deficiency, unspecified; M54.6 Pain in thoracic spine; F41.9 Anxiety disorder, unspecified
CPT/HCPCS: 99396

== ENCOUNTER 2023-08-13 12:10 | Outpatient (REF) | payer OTHER, SELFPAY ==
[2023-08-13 12:40] LABS: MANUAL DIFF FLAG NO
[2023-08-13 13:21] LABS: Basophils Percent Auto 0.8 % (0-2); Eosinophils Absolute Auto 0.1 X10*3/uL (0.0-0.4); Eosinophils Percent Auto 2.9 % (0-4); Hematocrit 42.1 % (42.0-52.0); Hemoglobin 14.2 g/dl (14.0-18.0); Imm Gran Abs Auto 0.01 X10*3/uL (0.00-0.03); Imm Gran Pct Auto 0.2 % (0.0-0.4); Lymphocytes Absolute Auto 1.4 X10*3/uL (1.2-4.9); Lymphocytes Percent Auto 29.4 % (20-40); Mean Corpuscular HGB Conc 33.7 g/dl (31.0-36.0); Mean Corpuscular Hemoglobin 29.2 pg (27.0-33.0); Mean Corpuscular Volume 86.6 fL (80.0-98.0); Mean Platelet Volume 11.3 fL (9.4-12.4); Monocytes Absolute Auto 0.4 X10*3/uL (0.1-1.2); Monocytes Percent Auto 7.6 % (2-11); Neutrophils Absolute Auto 2.9 x10*3/uL (2.0-8.3); Neutrophils Percent Auto 59.1 % (45-73); Platelet Count 284 X10*3/uL (160-400); Red Blood Count 4.86 X10*6/uL (4.60-5.80); Red Cell Distribution Width 13.7 % (11.0-16.0); White Blood Count 4.9 X10*3/uL (4.8-10.8)
[2023-08-13 14:02] LABS: Alanine Aminotransferase 20 U/L (0-40); Albumin Level 4.4 g/dL (3.5-5.0); Alkaline Phosphatase 69 U/L (39-117); Anion Gap 12 (12-20); Aspartate Amino Transferase 23 U/L (5-37); Bilirubin Total 0.4 mg/dL (0.0-1.0); Blood Urea Nitrogen 20 mg/dL (9-16); Calcium 9.3 mg/dL (8.4-10.2); Carbon Dioxide 27 mmol/L (22-29); Chloride 104 mmol/L (96-108); Cholesterol 139 mg/dL (<200); Estimated Glomerular Filt Rate > 60; Glucose Fasting 100 mg/dL (60-99); HDL Cholesterol 61 mg/dL (>40); LDL Cholesterol Calculated 69 mg/dL (<100); Potassium 3.9 mmol/L (3.3-5.1); Sodium 139 mmol/L (135-145); Triglycerides 49 mg/dL (<150)
[2023-08-13 14:21] LABS: TSH reflex Free T4 2.36 uIU/mL (0.32-4.0); Vitamin D 25-OH Total 60.5 ng/mL (>30)
[2023-08-13 15:34] LABS: Appearance Urine Clear; Color Urine Yellow; Glucose Urine UA Negative (Negative); Leukocyte Esterase Urine Negative (Negative); Nitrite Urine Negative (Negative); Specific Gravity - Urine >= 1.030 (1.005-1.025); Urine Blood Negative (Negative); Urine Ketones Trace mg/dL (Negative); Urine Protein Negative (Neg-Trace)
== END 2023-08-13 12:11 | disposition home or self-care (01) ==
LOC: HO.LAB 12:10
PROVIDERS: PCP Internal Medicine; Visit Provider Internal Medicine
DX: Z00.00 Encounter for general adult medical examination without abnormal findings (principal); E55.9 Vitamin D deficiency, unspecified; E78.00 Pure hypercholesterolemia, unspecified; R30.0 Dysuria
CPT/HCPCS: 36415; 80053; 80061; 81003; 82306; 84443; 85025

== ENCOUNTER 2023-10-22 13:32 | Outpatient (AMB) | payer OTHER, SELFPAY ==
[2023-10-22 13:36] VITALS: BP 116/80; PULSE 106; O2SAT 98; BMI 19.5
--- NOTE | 2023-10-22 13:36 | A.OFFPC_ITS ---
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 Allergies blackberry Allergy (Severe, Verified 10/22/23 14:09) Anaphylaxis NSAIDS (Non-Steroidal Anti-Inflamma [NSAIDS (NON-STEROIDAL ANTI-INFLAMMA] Allergy (Intermediate, Verified 10/22/23 14:09) BLOOD IN STOOL diclofenac [DICLOFENAC] Allergy (Unknown, Verified 10/22/23 14:09) Blood in stool naproxen [Aleve] Allergy (Unknown, Verified 10/22/23 14:09) Blood in stool penicillin V Allergy (Unknown, Verified 10/22/23 14:09) rash Penicillins [PENICILLINS] Allergy (Unknown, Verified 10/22/23 14:09) Rash rassberry Allergy (Severe, Uncoded 10/22/23 14:09) Anaphylaxis Medication List - Last Reconciled 10/22/23 by Aguilar Lopez MD cholecalciferol (vitamin D3) 50 mcg PO DAILY 90 days epinephrine (EpiPen) 0.3 mg (0.3 mL) IM Q4H PRN gabapentin 400 mg PO TID 30 days tramadol 50 mg PO TID PRN 30 days Tobacco use date assessed: 10/22/23 Dental Screening Dental Screen Date: 10/22/23 Did you have a dental visit in the last 12 months?: No Did you have a dental problem in the last 6 months where you did not have access to dental care?: No HPI 4 month f/u HPI Details Patient comes in today for his follow up visit States that he feels okay He denies any headaches or dizziness Denies any chest pains, no SOB No nausea/vomiting, no abdominal pain No change in bowel habits noted Still has chronic pain over his left elbow but states that this is mostly manageable on his current meds Needs his Tramadol and Gabapentin Rx refilled today States that he finally had his labs done back in August 2023 and would like to know how he did on his recent labs PFSH Medical History Anxiety Vitamin D deficiency Chronic pain of left elbow Surgical History History of elbow surgery (~08/27/10) Hx of elbow surgery (~09/29/12) Family History Mother Hypertension Cancer Father Medical history unknown Social History Housing: House Alcohol intake: never Patient Tobacco Use Status: Never used Tobacco e-Cigarette/Vaping Use: Never Used Second Hand Smoke Exposure: Yes service: No Current occupational status: unemployed Cognitive needs: No Hearing needs: No Vision needs: No Questionnaire PHQ-9 Over the last 2 weeks, how often have you been bothered by any of the following problems? 1. Little interest or pleasure in doing things: not at all 2. Feeling down, depressed, or hopeless: not at all 3. Trouble falling or staying asleep, or sleeping too much: not at all 4. Feeling tired or having little energy: not at all 5. Poor appetite or overeating: not at all 6. Feeling bad about yourself - or that you are a failure or have let yourself or your family down: not at all 7. Trouble concentrating on things, such as reading the newspaper or watching television: not at all 8. Moving or speaking so slowly that other people could have noticed. Or the opposite - being so fidgety or restless that you have been moving around a lot more than usual: not at all 9. Thoughts that you would be better off or of hurting yourself in some way: not at all Total score: 0 Depression Screening Interpretation: Negative Depression Screening Done: Yes 32055 - PHQ-9 Billing: Yes Source: Developed by Drs. Alex Watson, Bre Terry, J Carlos Reid and colleagues, with an educational sayra from [employer]. Thrive Questionnaire Date Thrive assessed: 10/22/23 I am a: Patient What is your living situation today?: I have a steady place to live Within the past 12 months, did the food you bought not last and you didn't have the money to get more?: Never true Within the past 12 months, did you worry whether your food would run out before you got money to buy more?: Never true Do you have trouble paying for medicines?: No Do you have trouble getting transportation to medical appointments?: No Do you have trouble paying your heating and electricity bill?: No Do you have trouble taking care of your child, family member or friend?: No Do you have trouble with day-to-day activities such as bathing, preparing meals, shopping, managing finances, etc.?: No Are you currently unemployed and looking for a job?: No Are you interested in more education?: No Please select the resources that you would like help with: None Currently or been in a relationship where the following occur: no concerns reported THRIVE Score: 0 AUDIT C Alcohol Use Questionnaire (AUDIT-C) 1. How often do you have a drink containing alcohol?: Never 3. How often do you have six or more drinks on one occasion?: Never Total Score: 0 Score Reviewed/Action Taken: Yes SAUMYA-7 AMB Questionnaire SAUMYA-7 Date SAUMYA - 7 assessed: 10/22/23 Feeling nervous, anxious, or on edge: 0 = Not at all Not being able to stop or control worryin = Not at all Worrying too much about different things: 0 = Not at all Trouble relaxin = Not at all Being so restless that it is hard to sit still: 0 = Not at all Becoming easily annoyed or irritable: 0 = Not at all Feeling afraid as if something awful might happen: 0 = Not at all Total SAUMYA-7 score (0-4 normal; 5-9 mild; 10-14 moderate; 15-21 severe): 0 Source: Developed by Drs. Alex Watson, Bre Terry, J Carlos Reid and colleagues, with an educational sayra from [employer]. SAUMYA-7 Assessment Billing SAUMYA-7 Assessment Tool: SAUMYA-7 Assessment 09208 Review of Systems Const Denies chills, Denies fatigue, Denies fever(s) and Denies headache(s) ENT Denies dysphagia, Denies dizziness, Denies otalgia, Denies headache(s), Denies neck pain, Denies odynophagia and Denies sore throat Card Denies chest pain, Denies palpitations and Denies dyspnea Resp Denies cough, Denies dyspnea and Denies wheezing GI Denies abdominal pain, Denies constipation, Denies dysphagia, Denies diarrhea, Denies nausea, Denies odynophagia and Denies vomiting Denies dysuria, Denies nocturia and Denies urinary frequency Musc Reports back pain (on and off over the lower back), Reports arthralgias (over the left elbow - chronic) and Denies neck pain Skin/Breast Denies rash Neuro Denies dizziness and Denies headache(s) Endo Denies fatigue and Denies palpitations Aller/Immun Reports seasonal rhinorrhea and Denies wheezing Physical exam (Primary Care) Vital Signs: Last Vital Signs Pulse 106 H 10/22/23 13:36 BP 116/80 10/22/23 13:36 Pulse Ox 98 10/22/23 13:36 Oxygen Delivery Method Room Air 10/22/23 13:36 BMI result Body Mass Index 19.5 Tobacco/Smoking Status: Tobacco use Status Tobacco use date assessed 10/22/23 10/22/23 13:40 Patient Tobacco Use Status Never used Tobacco 10/22/23 13:40 e-Cigarette/Vaping Use Never Used 10/22/23 13:40 PHQ-9: PHQ-9 Score PHQ-9: Total score 0 10/22/23 13:40 Depression Screening Interpretation: Negative Thrive Assessment: Date of Thrive Assessment Date Thrive assessed 10/22/23 10/22/23 13:40 Currently or been in a relationship where the following occur: no concerns reported Const General: no acute distress and alert HENMT Ears: TM's normal bilaterally and EAC's normal Throat: Yes posterior oropharynx normal and Yes tonsils normal (no TP congestion noted) Neck Neck: Yes no lymphadenopathy and Yes supple Thyroid: Thyroid normal Resp Auscultation: clear to auscultation bilaterally, no rales and no wheezes Cardio Rate: regular rate Rhythm: regular rhythm Heart sounds: no murmurs GI Palpation (GI): Soft to palpation and nontender Auscultation: normal bowel sounds Back/Spine/Pelvis Thoracic/Lumbar Spine: lumbar spinal tenderness (mild) Skin Rashes: no rashes Extrem General: Yes no clubbing, cyanosis or edema Left upper extremity: elbow/forearm Details: tenderness (chronic) Location: of the olecranon and of the lateral epicondyle; no swelling Results Reviewed Results Reviewed: Laboratory Tests 08/13/23 08/13/23 12:30 14:03 WBC 4.9 Hgb 14.2 Hct 42.1 Plt Count 284 Sodium 139 Potassium 3.9 Creatinine 0.85 Estimated GFR > 60 Fasting Glucose 100 H Calcium 9.3 AST 23 ALT 20 Triglycerides 49 Cholesterol 139 LDL Cholesterol, Calc 69 HDL Cholesterol 61 25-OH Vitamin D Total 60.5 TSH 2.36 Ur Specific [place] >= 1.030 H Urine Protein Negative Urine Glucose (UA) Negative Urine Blood Negative Urine Nitrite Negative Ur Leukocyte Esterase Negative Assessment and Plan Assessment & Plan (1) Chronic pain of left elbow: Comment: Failed surgery X [address] Welch Code(s): M25.522 - Pain in left elbow; G89.29 - Other chronic pain Plan: Continue Tramadol 50 mg TID PRN and Gabapentin 400 mg TID - Rx refilled (2) Vitamin D deficiency: Code(s): E55.9 - Vitamin D deficiency, unspecified Plan: Continue Vitamin D3 2000 units QD He is advised that his Vitamin D level on his recent labs came out normal Results of his labs done a couple of months ago reviewed and discussed with patient (3) Back pain: Code(s): M54.9 - Dorsalgia, unspecified Qualifiers: Back pain location: thoracic back pain Chronicity: acute Back pain laterality: midline Qualified Code(s): M54.6 - Pain in thoracic spine Plan: On and off; thoracic spine x-rays done in 11/2020 came out normal Will consider referring to physical therapy if his back pains continue to flare up (4) Anxiety: Code(s): F41.9 - Anxiety disorder, unspecified Plan: Continue Lorazepam 0.5 mg 2 to 3 times a day as needed Plan Follow up in 4 months Medications: Refilled tramadol 50 mg PO TID 30 days PRN 90 tabs 1RF pain G89.29 - Other chronic pain, M25.522 - Pain in left elbow gabapentin 400 mg PO TID 30 days 90 caps 3RF G89.29 - Other chronic pain, M25.522 - Pain in left elbow Coding Level of Care Code Est Pt Level 4 (74168) Diagnoses Chronic pain of left elbow M25.522; G89.29 Vitamin D deficiency E55.9 Acute midline thoracic back pain M54.6 Back pain location: thoracic back pain Chronicity: acute Back pain laterality: midline Anxiety F41.9 Additional Codes SAUMYA-7 Assessment Billing - SAUMYA-7 Assessment Tool: SAUMYA-7 Assessment 13276 ([id number])
== END 2023-10-22 14:15 | disposition home or self-care (01) ==
PROVIDERS: PCP Internal Medicine; Visit Provider Internal Medicine
DX: M25.522 Pain in left elbow (principal); E55.9 Vitamin D deficiency, unspecified; M54.6 Pain in thoracic spine; F41.9 Anxiety disorder, unspecified
CPT/HCPCS: 99214

== ENCOUNTER 2024-06-16 14:17 | Outpatient (AMB) | payer OTHER, SELFPAY ==
--- NOTE | 2024-06-16 14:19 | MHC.PC.OV ---
Vital Signs 06/16/24 14:20 Height 5 ft 8 in Weight 142 lb 6 oz BMI 21.6 BP 120/76 Blood Pressure Location Lt brachial Position Sitting Pulse 99 Pulse Source Pulse Oximeter Pulse Oximetry (%) 98 Oxygen Delivery Method Room Air Intake Visit Reasons: 4 Month F/U Retail Planner Required: No Accompanied by: Self / Same As Patient Allergies blackberry Allergy (Severe, Verified 06/16/24 14:39) Anaphylaxis NSAIDS (Non-Steroidal Anti-Inflamma [NSAIDS (NON-STEROIDAL ANTI-INFLAMMA] Allergy (Intermediate, Verified 06/16/24 14:39) BLOOD IN STOOL diclofenac [DICLOFENAC] Allergy (Unknown, Verified 06/16/24 14:39) Blood in stool naproxen [Aleve] Allergy (Unknown, Verified 06/16/24 14:39) Blood in stool penicillin V Allergy (Unknown, Verified 06/16/24 14:39) rash Penicillins [PENICILLINS] Allergy (Unknown, Verified 06/16/24 14:39) Rash rassberry Allergy (Severe, Uncoded 06/16/24 14:39) Anaphylaxis Medication List - Last Reconciled 06/16/24 by Aguilar Lopez MD cholecalciferol (vitamin D3) 50 mcg PO DAILY 90 days epinephrine (EpiPen) 0.3 mg (0.3 mL) IM Q4H PRN gabapentin 400 mg PO TID 30 days tramadol 50 mg PO TID PRN 30 days Tobacco use date assessed: 06/16/24 Dental Screening Dental Screen Date: 06/16/24 Did you have a dental visit in the last 12 months?: No Did you have a dental problem in the last 6 months where you did not have access to dental care?: No Was dental information given to patient?: Patient has dentist HPI 4 Month F/U HPI Details Patient comes in today for his follow up visit States that he feels okay He denies any headaches or dizziness Denies any chest pains, no SOB No nausea/vomiting, no abdominal pain No change in bowel habits noted Still has chronic pain over his left elbow but states that this is mostly manageable with his current meds Again needs his Tramadol and Gabapentin Rx refilled today PFSH Medical History Anxiety Vitamin D deficiency Chronic pain of left elbow Surgical History History of elbow surgery (~08/27/10) Hx of elbow surgery (~09/29/12) Family History Mother Hypertension Cancer Father Medical history unknown Social History Housing: House Alcohol intake: never Patient Tobacco Use Status: Never used Tobacco e-Cigarette/Vaping Use: Never Used Second Hand Smoke Exposure: Yes service: No Current occupational status: unemployed Cognitive needs: No Hearing needs: No Vision needs: No Questionnaire PHQ-9 Over the last 2 weeks, how often have you been bothered by any of the following problems? 1. Little interest or pleasure in doing things: not at all 2. Feeling down, depressed, or hopeless: not at all 3. Trouble falling or staying asleep, or sleeping too much: not at all 4. Feeling tired or having little energy: not at all 5. Poor appetite or overeating: not at all 6. Feeling bad about yourself - or that you are a failure or have let yourself or your family down: not at all 7. Trouble concentrating on things, such as reading the newspaper or watching television: not at all 8. Moving or speaking so slowly that other people could have noticed. Or the opposite - being so fidgety or restless that you have been moving around a lot more than usual: not at all 9. Thoughts that you would be better off or of hurting yourself in some way: not at all Total score: 0 Depression Screening Interpretation: Negative Depression Screening Done: Yes 39883 - PHQ-9 Billing: Yes Source: Developed by Drs. Alex Watson, Bre Terry, J Carlos Reid and colleagues, with an educational sayra from [employer]. Thrive Questionnaire Date Thrive assessed: 06/16/24 I am a: Patient What is your living situation today?: I have a steady place to live Within the past 12 months, did the food you bought not last and you didn't have the money to get more?: Never true Within the past 12 months, did you worry whether your food would run out before you got money to buy more?: Never true Do you have trouble paying for medicines?: No Do you have trouble getting transportation to medical appointments?: No Do you have trouble paying your heating and electricity bill?: No Do you have trouble taking care of your child, family member or friend?: No Do you have trouble with day-to-day activities such as bathing, preparing meals, shopping, managing finances, etc.?: No Are you currently unemployed and looking for a job?: No Are you interested in more education?: No Please select the resources that you would like help with: None Currently or been in a relationship where the following occur: No concerns reported THRIVE Score: 0 AUDIT C Alcohol Use Questionnaire (AUDIT-C) 1. How often do you have a drink containing alcohol?: Never 3. How often do you have six or more drinks on one occasion?: Never Total Score: 0 Score Reviewed/Action Taken: Yes SAUMYA-7 AMB Questionnaire SAUMYA-7 Date SAUMYA - 7 assessed: 06/16/24 Feeling nervous, anxious, or on edge: 0 = Not at all Not being able to stop or control worryin = Not at all Worrying too much about different things: 0 = Not at all Trouble relaxin = Not at all Being so restless that it is hard to sit still: 0 = Not at all Becoming easily annoyed or irritable: 0 = Not at all Feeling afraid as if something awful might happen: 0 = Not at all Total SAUMYA-7 score (0-4 normal; 5-9 mild; 10-14 moderate; 15-21 severe): 0 Source: Developed by Drs. Alex Watson, Bre Terry, J Carlos Reid and colleagues, with an educational sayra from [employer]. SAUMYA-7 Assessment Billing SAUMYA-7 Assessment Tool: SAUMYA-7 Assessment 72653 Review of Systems Const Denies chills, Denies fatigue, Denies fever(s) and Denies headache(s) ENT Denies dysphagia, Denies dizziness, Denies otalgia, Denies headache(s), Denies neck pain, Denies odynophagia and Denies sore throat Card Denies chest pain, Denies palpitations and Denies dyspnea Resp Denies cough, Denies dyspnea and Denies wheezing GI Denies abdominal pain, Denies constipation, Denies dysphagia, Denies diarrhea, Denies nausea, Denies odynophagia and Denies vomiting Denies dysuria, Denies nocturia and Denies urinary frequency Musc Reports back pain (on and off over the lower back), Reports arthralgias (over the left elbow - chronic) and Denies neck pain Skin/Breast Denies rash Neuro Denies dizziness and Denies headache(s) Endo Denies fatigue and Denies palpitations Aller/Immun Reports seasonal rhinorrhea and Denies wheezing Physical exam (Primary Care) Vital Signs: Last Vital Signs Pulse 99 06/16/24 14:20 BP 120/76 06/16/24 14:20 Pulse Ox 98 06/16/24 14:20 Oxygen Delivery Method Room Air 06/16/24 14:20 BMI result Body Mass Index 21.6 Tobacco/Smoking Status: Tobacco use Status Tobacco use date assessed 06/16/24 06/16/24 14:26 Patient Tobacco Use Status Never used Tobacco 06/16/24 14:26 e-Cigarette/Vaping Use Never Used 06/16/24 14:26 PHQ-9: PHQ-9 Score PHQ-9: Total score 0 06/16/24 14:41 Depression Screening Interpretation: Negative Thrive Assessment: Date of Thrive Assessment Date Thrive assessed 06/16/24 06/16/24 14:26 Currently or been in a relationship where the following occur: No concerns reported Const General: no acute distress and alert HENMT Ears: TM's normal bilaterally and EAC's normal Throat: Yes posterior oropharynx normal and Yes tonsils normal (no TP congestion noted) Neck Neck: Yes supple and No lymphadenopathy Thyroid: Thyroid normal Resp Auscultation: clear to auscultation bilaterally, no rales and no wheezes Cardio Rate: regular rate Rhythm: regular rhythm Heart sounds: no murmurs GI Palpation (GI): Soft to palpation and nontender Auscultation: normal bowel sounds Back/Spine/Pelvis Thoracic/Lumbar Spine: lumbar spinal tenderness (mild) Skin Rashes: no rashes Extrem General: Yes no clubbing, cyanosis or edema Left upper extremity: elbow/forearm Details: tenderness (chronic) Location: of the olecranon and of the lateral epicondyle; no swelling Coding Level of Care Code Est Pt Level 3 (85333) Diagnoses Chronic pain of left elbow M25.522; G89.29 Vitamin D deficiency E55.9 Acute midline thoracic back pain M54.6 Back pain location: thoracic back pain Chronicity: acute Back pain laterality: midline Anxiety F41.9 Additional Codes SAUMYA-7 Assessment Billing - SAUMYA-7 Assessment Tool: SAUMYA-7 Assessment 01236 ([id number]) PHQ-9 - 91570 - PHQ-9 Billing: Yes ([id number]) Assessment & Plan Assessment & Plan (1) Chronic pain of left elbow: Comment: Failed surgery X [address] Welch Code(s): M25.522 - Pain in left elbow; G89.29 - Other chronic pain Category: Medical Plan: Continue Tramadol 50 mg TID PRN and Gabapentin 400 mg TID - Rx refilled (2) Vitamin D deficiency: Code(s): E55.9 - Vitamin D deficiency, unspecified Category: Medical Plan: Continue Vitamin D3 2000 units QD Will recheck his labs and Vitamin D level in 4 months for follow up (3) Back pain: Code(s): M54.9 - Dorsalgia, unspecified Category: Medical Qualifiers: Back pain location: thoracic back pain Chronicity: acute Back pain laterality: midline Qualified Code(s): M54.6 - Pain in thoracic spine Plan: On and off; thoracic spine x-rays done in 11/2020 came out normal Will consider referring him to physical therapy if his back pains continue to flare up or bother him often (4) Anxiety: Code(s): F41.9 - Anxiety disorder, unspecified Category: Medical Plan: Continue Lorazepam 0.5 mg 2 to 3 times a day as needed Plan To return in 4 months for his next annual physical examination Orders: Orders Lipid Panel 4 Months E78.00 - Pure hypercholesterolemia, unspecified, Z00.00 - Encounter for general adult medical examination without abnormal findings Comprehensive [place]. Panel Fast 4 Months E78.00 - Pure hypercholesterolemia, unspecified, Z00.00 - Encounter for general adult medical examination without abnormal findings TSH reflex Free T4 4 Months E78.00 - Pure hypercholesterolemia, unspecified, Z00.00 - Encounter for general adult medical examination without abnormal findings UA CC w/rflx Micro + Cult 4 Months R30.0 - Dysuria, Z00.00 - Encounter for general adult medical examination without abnormal findings Vitamin D 25-OH Total 4 Months E55.9 - Vitamin D deficiency, unspecified, Z00.00 - Encounter for general adult medical examination without abnormal findings Complete Blood Count Auto Diff 4 Months D64.9 - Anemia, unspecified, Z00.00 - Encounter for general adult medical examination without abnormal findings Prostate Specific Antigen Scr 4 Months Z00.00 - Encounter for general adult medical examination without abnormal findings Medications: Refilled gabapentin 400 mg PO TID 30 days 90 caps 3RF G89.29 - Other chronic pain, M25.522 - Pain in left elbow tramadol 50 mg PO TID 30 days PRN 90 tabs 0RF pain G89.29 - Other chronic pain, M25.522 - Pain in left elbow
[2024-06-16 14:20] VITALS: BP 120/76; PULSE 99; O2SAT 98; BMI 21.6
== END 2024-06-16 14:46 | disposition home or self-care (01) ==
PROVIDERS: PCP Internal Medicine; Visit Provider Internal Medicine
DX: M25.522 Pain in left elbow (principal); G89.29 Other chronic pain; E55.9 Vitamin D deficiency, unspecified; M54.6 Pain in thoracic spine; F41.9 Anxiety disorder, unspecified

== ENCOUNTER → 2024-06-16 14:17 | Outpatient (BNVA) | payer OTHER, SELFPAY | PROVIDERS: PCP Internal Medicine; Visit Provider Internal Medicine | DX: M25.522 Pain in left elbow (principal); G89.29 Other chronic pain; E55.9 Vitamin D deficiency, unspecified; M54.6 Pain in thoracic spine; F41.9 Anxiety disorder, unspecified | CPT/HCPCS: 96127; 99212 ==

== ENCOUNTER 2025-05-23 13:50 | Outpatient (AMB) | payer OTHER, SELFPAY ==
--- NOTE | 2025-05-23 14:00 | MHC.PC.OV ---
Vital Signs 05/23/25 14:01 Height 5 ft 8 in Weight 173 lb 8 oz BMI 26.4 BP 116/84 Blood Pressure Location Rt brachial Position Sitting Pulse 97 Pulse Source Pulse Oximeter Pulse Oximetry (%) 97 Oxygen Delivery Method Room Air Intake Visit Reasons: Annual PE RE Value Advisor Required: No Accompanied by: Self / Same As Patient Allergies blackberry Allergy (Severe, Verified 05/23/25 14:51) Anaphylaxis NSAIDS (Non-Steroidal Anti-Inflamma (NSAIDS (NON-STEROIDAL ANTI-INFLAMMA) Allergy (Intermediate, Verified 05/23/25 14:51) BLOOD IN STOOL diclofenac (DICLOFENAC) Allergy (Unknown, Verified 05/23/25 14:51) Blood in stool naproxen (Aleve) Allergy (Unknown, Verified 05/23/25 14:51) Blood in stool penicillin V Allergy (Unknown, Verified 05/23/25 14:51) rash Penicillins (PENICILLINS) Allergy (Unknown, Verified 05/23/25 14:51) Rash rassberry Allergy (Severe, Uncoded 05/23/25 14:51) Anaphylaxis Medication List - Last Reconciled 05/23/25 by Aguilar Lopez MD cholecalciferol (vitamin D3) 50 mcg PO DAILY 90 days epinephrine (EpiPen) 0.3 mg (0.3 mL) IM Q4H PRN gabapentin 400 mg PO TID 30 days tramadol 50 mg PO TID PRN 30 days Tobacco use date assessed: 05/23/25 Dental Screening Dental Screen Date: 05/23/25 Did you have a dental visit in the last 12 months?: No Did you have a dental problem in the last 6 months where you did not have access to dental care?: No Was dental information given to patient?: No HPI Annual PE RE HPI Details Patient comes in today for his annual physical examination States that he feels okay He denies any headaches or dizziness Denies any chest pains, no shortness of breath No nausea/vomiting, no abdominal pain but he reports experiencing increased heartburns often for the past couple of months No change in bowel habits noted He denies any acute urinary symptoms States that his chronic left elbow pain and low back pain remained adequately controlled on his current medications He is also past due for his colon cancer screening as he has never had colon cancer screening done in the past [facility] Medical History (Updated 05/28/25 @ 05:04 by Aguilar Lopez MD) Colon cancer screening declined GERD without esophagitis Anxiety Vitamin D deficiency Chronic pain of left elbow Surgical History History of elbow surgery (~08/27/10) Hx of elbow surgery (~09/29/12) Family History Mother Hypertension Cancer Father Medical history unknown Social History Housing: House Alcohol intake: never Patient Tobacco Use Status: Never used Tobacco e-Cigarette/Vaping Use: Never Used Second Hand Smoke Exposure: Yes service: No Current occupational status: unemployed Cognitive needs: No Hearing needs: No Vision needs: No Questionnaire PHQ-9 Over the last 2 weeks, how often have you been bothered by any of the following problems? 1. Little interest or pleasure in doing things: not at all 2. Feeling down, depressed, or hopeless: not at all 3. Trouble falling or staying asleep, or sleeping too much: not at all 4. Feeling tired or having little energy: not at all 5. Poor appetite or overeating: not at all 6. Feeling bad about yourself - or that you are a failure or have let yourself or your family down: not at all 7. Trouble concentrating on things, such as reading the newspaper or watching television: not at all 8. Moving or speaking so slowly that other people could have noticed. Or the opposite - being so fidgety or restless that you have been moving around a lot more than usual: not at all 9. Thoughts that you would be better off or of hurting yourself in some way: not at all Total score: 0 Depression Screening Interpretation: Negative Depression Screening Done: Yes 49490 - PHQ-9 Billing: Yes Source: Developed by Drs. Alex Watson, Bre Terry, J Carlos Reid and colleagues, with an educational sayra from [employer]. Thrive Questionnaire Date Thrive assessed: 05/23/25 I am a: Patient What is your living situation today?: I have a steady place to live Within the past 12 months, did the food you bought not last and you didn't have the money to get more?: Never true Within the past 12 months, did you worry whether your food would run out before you got money to buy more?: Never true Do you have trouble paying for medicines?: I choose not to answer this question Do you have trouble getting transportation to medical appointments?: I choose not to answer this question Do you have trouble paying your heating and electricity bill?: I choose not to answer this question Do you have trouble taking care of your child, family member or friend?: No Do you have trouble with day-to-day activities such as bathing, preparing meals, shopping, managing finances, etc.?: I choose not to answer this question Are you currently unemployed and looking for a job?: I choose not to answer this question Are you interested in more education?: I choose not to answer this question Please select the resources that you would like help with: None Currently or been in a relationship where the following occur: I choose not to answer THRIVE Score: 0 AUDIT C Alcohol Use Questionnaire (AUDIT-C) 1. How often do you have a drink containing alcohol?: Never 3. How often do you have six or more drinks on one occasion?: Never Total Score: 0 Score Reviewed/Action Taken: Yes SAUMYA-7 AMB Questionnaire SAUMYA-7 Date SAUMYA - 7 assessed: 05/23/25 Feeling nervous, anxious, or on edge: 0 = Not at all Not being able to stop or control worryin = Not at all Worrying too much about different things: 0 = Not at all Trouble relaxin = Not at all Being so restless that it is hard to sit still: 0 = Not at all Becoming easily annoyed or irritable: 0 = Not at all Feeling afraid as if something awful might happen: 0 = Not at all Total SAUMYA-7 score (0-4 normal; 5-9 mild; 10-14 moderate; 15-21 severe): 0 Source: Developed by Drs. Alex Watson, Bre Terry, J Carlos Reid and colleagues, with an educational sayra from [employer]. SAUYMA-7 Assessment Billing SAUMYA-7 Assessment Tool: SAUMYA-7 Assessment 13369 Review of Systems Const Denies chills, Denies fatigue, Denies fever(s), Denies headache(s), Denies malaise and Denies weakness Eyes Denies blurry vision, Denies change in vision, Denies irritation and Denies itchy eyes ENT Denies dysphagia, Denies dizziness, Denies otalgia, Denies headache(s), Denies neck pain, Denies odynophagia and Denies sore throat Card Denies rapid heart rate, Denies irregular heart rhythm, Denies palpitations and Denies dyspnea Resp Denies chest congestion, Denies cough, Denies dyspnea and Denies wheezing GI Denies abdominal pain, Denies bloating, Denies constipation, Denies dysphagia, Reports heartburn (increased over the past couple of months), Denies diarrhea, Denies nausea, Denies odynophagia and Denies vomiting Denies hematuria, Denies difficulty urinating, Denies dysuria, Denies urinary frequency and Denies urinary urgency Musc Reports back pain (on and off over the lower back), Reports arthralgias (over the left elbow - chronic) and Denies neck pain Skin/Breast Denies change in pigmentation, Denies lesions, Denies rash and Denies unusual bruising Neuro Denies dizziness, Denies headache(s), Denies paresthesias and Denies weakness Psych Denies anxiety and Denies depression Endo Denies fatigue and Denies palpitations Aller/Immun Denies itchy eyes and Denies wheezing Physical exam (Primary Care) Vital Signs: Last Vital Signs Pulse 97 05/23/25 14:01 BP 116/84 05/23/25 14:01 Pulse Ox 97 05/23/25 14:01 Oxygen Delivery Method Room Air 05/23/25 14:01 BMI result Body Mass Index 26.4 Tobacco/Smoking Status: Tobacco use Status Tobacco use date assessed 05/23/25 05/23/25 14:02 Patient Tobacco Use Status Never used Tobacco 05/23/25 14:01 e-Cigarette/Vaping Use Never Used 05/23/25 14:01 PHQ-9: PHQ-9 Score PHQ-9: Total score 0 05/23/25 14:54 Depression Screening Interpretation: Negative Thrive Assessment: Date of Thrive Assessment Date Thrive assessed 05/23/25 05/23/25 14:02 Currently or been in a relationship where the following occur: I choose not to answer Const General: no acute distress, alert and awake Orientation/consciousness: patient oriented x3 HENMT Head: Yes normocephalic and Yes atraumatic Ears: external ears normal, TM's normal bilaterally and EAC's normal General nose exam: No nasal discharge present Face and sinus: Yes normal facial exam and Yes sinuses nontender Teeth and gingiva: dentition normal Throat: Yes posterior oropharynx normal and Yes tonsils normal (no TP congestion) Eyes Eyelids: Yes eyelids normal Conjunctivae: conjunctivae normal Pupils: Equal, round and reactive pupils present EOM: EOMs intact bilaterally Neck Neck: Yes no lymphadenopathy and Yes supple Thyroid: Thyroid normal Resp Auscultation: clear to auscultation bilaterally, no rales and no wheezes Cardio Rate: regular rate Rhythm: regular rhythm Heart sounds: no murmurs GI Palpation (GI): Soft to palpation, nontender and No hepatosplenomegaly present Auscultation: normal bowel sounds General: Yes no CVA tenderness Back/Spine/Pelvis Back: no CVA tenderness Thoracic/Lumbar Spine: lumbar spinal tenderness (mild) Skin Lesions: no lesions Rashes: no rashes Neuro General: patient oriented x3, moves all extremities, no focal motor deficits and CN's II-XI intact bilaterally Cranial nerves: Yes Equal, round and reactive pupils present Cognition (Neuro): normal cognition Gait exam (Neuro): Normal gait present Extrem General: Yes no clubbing, cyanosis or edema Left upper extremity: elbow/forearm Details: tenderness (chronic) Location: of the olecranon and of the lateral epicondyle; no swelling Coding Level of Care Code Est Pt Prev Care 40-64y(46070) Diagnoses Annual physical exam Z00.00 Chronic pain of left elbow M25.522; G89.29 GERD without esophagitis K21.9 Vitamin D deficiency E55.9 Acute midline thoracic back pain M54.6 Back pain location: thoracic back pain Chronicity: acute Back pain laterality: midline Anxiety F41.9 Colon cancer screening declined Z53.20 Additional Codes SAUMYA-7 Assessment Billing - SAUMYA-7 Assessment Tool: SAUMYA-7 Assessment 23541 ([id number]) PHQ-9 - 66326 - PHQ-9 Billing: Yes ([id number]) Assessment & Plan Assessment & Plan (1) Annual physical exam: Code(s): Z00.00 - Encounter for general adult medical examination without abnormal findings Category: Medical Plan: Check labs DEIDRE to complete his annual exam today He is past due for his screening colonoscopy but patient declined referral for colon cancer screening He also declined offer to have him get Cologuard testing done instead at this time - states that he will call for this if he changes his mind (2) Chronic pain of left elbow: Comment: Failed surgery X [address] Welch Code(s): M25.522 - Pain in left elbow; G89.29 - Other chronic pain Category: Medical Plan: Continue Tramadol 50 mg TID PRN and Gabapentin 400 mg TID (3) GERD without esophagitis: Code(s): K21.9 - Gastro-esophageal reflux disease without esophagitis Category: Medical Plan: Dietary restrictions in GERD discussed Will start him on Omeprazole 20 mg QD (4) Vitamin D deficiency: Code(s): E55.9 - Vitamin D deficiency, unspecified Category: Medical Plan: Continue Vitamin D3 2000 units QD Will recheck his labs and Vitamin D level for follow up (5) Back pain: Code(s): M54.9 - Dorsalgia, unspecified Category: Medical Qualifiers: Back pain location: thoracic back pain Chronicity: acute Back pain laterality: midline Qualified Code(s): M54.6 - Pain in thoracic spine Plan: On and off - thoracic spine x-rays done in 11/2020 came out normal Will consider referring him to physical therapy if his back pains continue to flare up or bother him often (6) Anxiety: Code(s): F41.9 - Anxiety disorder, unspecified Category: Medical Plan: Continue Lorazepam 0.5 mg 2 to 3 times a day as needed (7) Colon cancer screening declined: Code(s): Z53.20 - Procedure and treatment not carried out because of patient's decision for unspecified reasons Category: Medical Plan: He is past due for his screening colonoscopy but patient declined referral for colon cancer screening He also declined offer to have him get Cologuard testing done instead at this time - states that he will call for this if he changes his mind Plan Follow up in 4 months Orders: Orders Complete Blood Count Auto Diff 05/23/25 D64.9 - Anemia, unspecified, Z00.00 - Encounter for general adult medical examination without abnormal findings Lipid Panel 05/23/25 E78.00 - Pure hypercholesterolemia, unspecified, Z00.00 - Encounter for general adult medical examination without abnormal findings Prostate Specific Antigen Scr 05/23/25 Z00.00 - Encounter for general adult medical examination without abnormal findings TSH reflex Free T4 05/23/25 E78.00 - Pure hypercholesterolemia, unspecified, Z00. - Encounter for general adult medical examination without abnormal findings UA CC w/rflx Micro + Cult 05/23/25 R30.0 - Dysuria, Z00. - Encounter for general adult medical examination without abnormal findings Vitamin D 25-OH Total 05/23/25 E55.9 - Vitamin D deficiency, unspecified, Z00. - Encounter for general adult medical examination without abnormal findings Medications: New omeprazole 20 mg PO DAILY 90 caps 1RF 90 days
[2025-05-23 14:01] VITALS: BP 116/84; PULSE 97; O2SAT 97; BMI 26.4
== END 2025-05-23 14:58 | disposition home or self-care (01) ==
LOC: HO.HMCH 13:51
PROVIDERS: PCP Internal Medicine; Visit Provider Internal Medicine
DX: Z00.00 Encounter for general adult medical examination without abnormal findings (principal); M25.522 Pain in left elbow; G89.29 Other chronic pain; K21.9 Gastro-esophageal reflux disease without esophagitis; E55.9 Vitamin D deficiency, unspecified; M54.6 Pain in thoracic spine; F41.9 Anxiety disorder, unspecified; Z53.20 Procedure and treatment not carried out because of patient's decision for unspecified reasons

== ENCOUNTER → 2025-05-23 13:50 | Outpatient (BNVA) | payer OTHER, SELFPAY | PROVIDERS: PCP Internal Medicine; Visit Provider Internal Medicine | DX: Z00.00 Encounter for general adult medical examination without abnormal findings (principal); Z53.20 Procedure and treatment not carried out because of patient's decision for unspecified reasons; M25.522 Pain in left elbow; G89.29 Other chronic pain; K21.9 Gastro-esophageal reflux disease without esophagitis; E55.9 Vitamin D deficiency, unspecified; M54.6 Pain in thoracic spine; F41.9 Anxiety disorder, unspecified | CPT/HCPCS: 96127; 99396 ==